=== PATIENT | female | born 1980 | race Asian ===

== ENCOUNTER 2019-08-13 09:48 | Outpatient (CLI) | payer MEDICAID ==
[2019-08-13 13:11] LABS: BASOPHILS % (AUTO) 0.8 %; EOSINOPHILS # (AUTO) 0.4 10^3/uL (0.0-0.7); EOSINOPHILS % (AUTO) 10.2 %; HGB - HEMOGLOBIN 13.4 g/dL (12.0-16.0); LYMPHOCYTES # (AUTO) 1.1 10^3/uL (1.5-3.5); LYMPHOCYTES % (AUTO) 28.2 %; MEAN CORPUSCULAR HEMOGLOBIN 30.4 pg (27.0-31.0); MEAN CORPUSCULAR HGB CONC 32.9 g/dL (32.0-36.0); MEAN CORPUSCULAR VOLUME 92.3 fL (81.0-99.0); MEAN PLATELET VOLUME 10.1 fL (7.9-10.8); MONOCYTES # (AUTO) 0.3 10^3/uL (0.0-1.0); MONOCYTES % (AUTO) 8.4 %; NEUTROPHILS # (AUTO) 2.1 10^3/uL (1.5-6.6); NEUTROPHILS % (AUTO) 52.1 %; PLT - PLATELET COUNT 229 10^3/uL (130-450); RED BLOOD COUNT 4.41 10^6/uL (4.20-5.40); RED CELL DISTRIBUTION WIDTH 12.6 % (12.0-15.0); WHITE BLOOD COUNT 3.9 x10^3/uL (4.8-10.8)
[2019-08-13 13:24] LABS: ALBUMIN 4.6 g/dL (3.2-5.5); ALBUMIN/GLOBULIN RATIO 1.6 (1.0-2.2); ALKALINE PHOSPHATASE 40 IU/L (42-121); ALT ALANINE AMINOTRANSFERASE 14 IU/L (10-60); AST ASPARTATE AMINOTRANSFERASE 20 IU/L (10-42); BILIRUBIN,TOTAL 0.7 mg/dL (0.2-1.0); BUN - BLOOD UREA NITROGEN 12 mg/dL (6-20); CALCIUM 9.4 mg/dL (8.5-10.3); CARBON DIOXIDE - CO2 29 mmol/L (21-32); CHLORIDE 104 mmol/L (101-111); CHOL/HDL RATIO 2.4 (<4.4); CHOLESTEROL 163 mg/dL; CREATININE 0.7 mg/dL (0.4-1.0); GFR - MDRD 94 (>89); GLUCOSE 92 mg/dL (70-100); HDL CHOLESTEROL 67 mg/dL; SODIUM 139 mmol/L (135-145); TOTAL PROTEIN 7.4 g/dL (6.7-8.2)
== END 2019-08-13 10:00 | disposition home or self-care (01) ==
LOC: LAB.N 09:48
PROVIDERS: ATTEND Nurse Practitioner Gerontology
DX: Z13.9 Encounter for screening, unspecified (principal)
CPT/HCPCS: 36415; 80053; 80061; 83721; 84443; 85025

== ENCOUNTER 2019-10-16 08:25 | Outpatient (CLI) | payer MEDICAID, OTHER ==
--- NOTE | 2019-10-16 11:58 | Mammography Report ---
Reason: BREAST PAIN LT Procedure Date: 10/16/2019 Accession Number: [id number] / [id number] Procedure: [facility] - Diagnostic Dig Bilat CPT Code: Final Report FULL RESULT: EXAM: Diagnostic Dig Bilat mammography with jordon, Diagnostic left breast ultrasound (limited) DATE: 10/16/2019 9:16 AM CLINICAL HISTORY: EXAM: Diagnostic Dig Bilat, Breast Unilateral Limited DATE: 10/16/2019 9:16 AM CLINICAL HISTORY: The patient is a 39-year-old female presenting with intermittent nonfocal left breast pain. No reported personal nor family history of breast cancer. BILATERAL MAMMOGRAM TECHNIQUE: (B) - Bilateral CC, exaggerated CC and MLO views were obtained. Left ML view obtained. COMPARISON: None PARENCHYMAL PATTERN: (VD) - The breasts demonstrate extremely dense parenchyma bilaterally, limiting the sensitivity of mammography. FINDINGS: Nonspecific glandular asymmetry noted on this baseline study. There are no suspicious masses, calcifications, or areas of distortion. Specifically there is no explanation for focal pain in the left breast. LEFT ULTRASOUND TECHNIQUE: Hyperdensity transducer was utilized to evaluate the area of focal pain in the left breast. Doppler performed. [employer] Professor static images obtained. FINDINGS: [place] complex fibrous tissue present. No cyst, solid mass, distortion or hyperemia. Specifically there is no explanation for focal pain. IMPRESSION: Benign findings. BI-RADS category 2. RECOMMENDATION: Clinical follow-up. Benign imaging should not dissuade further evaluation of any suspicious findings. Routine screening mammography is recommended to begin at age 40. BI-RADS CATEGORY: (2) - Benign Findings. STANDARD QUALIFYING STATEMENTS: 1. This examination was not reviewed with the aid of Computer-Aided Detection (CAD). 2. A negative or benign imaging report should not preclude biopsy if clinically suspicious findings are present. 3. Dense breasts may obscure an underlying neoplasm. 4. This examination was reviewed with the aid of 3D breast imaging (tomosynthesis).
== END 2019-10-16 08:26 | disposition home or self-care (01) ==
LOC: DI 08:25
PROVIDERS: ATTEND Nurse Practitioner Gerontology
DX: N64.4 Mastodynia (principal)
CPT/HCPCS: 76642; 77066